=== PATIENT | female | born 1945 | race Caucasian/White ===

== ENCOUNTER 2016-11-03 13:55 | Emergency (ER) | payer MEDICARE, OTHER ==
[2016-11-03 14:22] VITALS: BP 153/75; PULSE 87; RESP 16; TEMP 98; O2SAT 100
--- NOTE | 2016-11-03 14:50 | ED PDOC ---
HPI: General Adult Time Seen by Provider: 11/03/16 14:23 Chief Complaint (Nursing): ENT Problem Chief Complaint (Provider): left ear pain History Per: Patient, Associate Director (Patient's son at bedside is translating in Citizen [place]) History/Exam Limitations: no limitations Onset/Duration Of Symptoms: Days (x3) Current Symptoms Are (Timing): Still Present Additional Complaint(s): Niru Truong is a 71 year old female with previous medical history of asthma, who presents to the emergency department with a complaint of left ear pain after cleaning her ears with a Q-tip 3 days ago. Denied any fever, chills, drainage, headaches, or dizziness. Patient reported feeling the cotton tip of Q-tip is stuck in ear. PMD: none provided Past Medical History Reviewed: Historical Data, Nursing Documentation, Vital Signs Vital Signs: Last Vital Signs Temp 98.0 F 11/03/16 14:19 Pulse 87 11/03/16 14:19 Resp 16 11/03/16 14:19 BP 153/75 H 11/03/16 14:19 Pulse Ox 100 11/03/16 15:23 - Medical History PMH: Asthma - Surgical History Surgical History: No Surg Hx - Family History Family History: States: No Known Family Hx - Living Arrangements Living Arrangements: With Family - Social History Current smoker - smoking cessation education provided: No Alcohol: None Drugs: Denies - Home Medications Home Medications: Ambulatory Orders Medication Instructions Recorded Docusate Sodium [Colace] 100 mg PO BID #20 sgl 12/18/14 Naproxen 375 mg PO Q8 PRN #15 tab 12/18/14 Ondansetron HCl [Zofran] 4 mg PO Q6 PRN #10 ml 12/18/14 oxyCODONE/Acetaminophen [Percocet 1 ea PO Q6 PRN #15 tab 12/18/14 5/325 mg Tab] Neomycin/Polymyxin/Hydrocort 4 drop TOP BID #1 bottle 11/03/16 [Cortisporin Otic Soln] - Allergies Allergies/Adverse Reactions: Allergies Allergy/AdvReac Type Severity Reaction Status Date / Time No Known Allergies Allergy Verified 11/03/16 14:19 Review of Systems ROS Statement: Except As Marked, All Systems Reviewed And Found Negative Constitutional: Negative for: Fever, Chills ENT: Positive for: Ear Pain (left - FB ). Negative for: Ear Discharge Respiratory: Negative for: Cough Gastrointestinal: Negative for: Vomiting Neurological: Negative for: Headache, Dizziness Physical Exam - Reviewed Nursing Documentation Reviewed: Yes Vital Signs Reviewed: Yes - Physical Exam Appears: Positive for: Well, Non-toxic, No Acute Distress Head Exam: Positive for: ATRAUMATIC, NORMAL INSPECTION, NORMOCEPHALIC ENT: Positive for: TM Is/Are (cotton swab in right auditory canal, no swelling, erythema or drainage, right ear wnl. ). Negative for: Normal ENT Inspection Neurologic/Psych: Positive for: Alert, Oriented - ECG O2 Sat by Pulse Oximetry: 100 (RA) Pulse Ox Interpretation: Normal Medical Decision Making Medical Decision Making: Initial Impression: Foreign body in left ear Initial Plan: * Removal of foreign body Time: 15:20 --Removed foreign body (cotton) from left ear with alligator forcep without any difficulty, TM intact s/p removal. Patient given prescription for Cortisporin otic drops and she was advised to avoid further use of Q-tips. Advised Tylenol for pain as needed. Patient was instructed to follow up with clinic or primary doctor in 2-3 days. Scribe Attestation: Documented by Deisy Olivarez, acting as a scribe for Carisa Fernandez PA-C. Provider Scribe Attestation: All medical record entries made by the Scribe were at my direction and personally dictated by me. I have reviewed the chart and agree that the record accurately reflects my personal performance of the history, physical exam, medical decision making, and the department course for this patient. I have also personally directed, reviewed, and agree with the discharge instructions and disposition. Procedures - Time-Out Type of Procedure: Foreign body removal Site of Procedure: left ear Correct Patient (with visual ID + MR# on ID Band): Yes Correct Procedure: Yes PA/Tech: Carisa Fernandez Disposition - Clinical Impression Clinical Impression: Ear foreign body - Patient ED Disposition Is Patient to be Admitted: No Counseled Patient/Family Regarding: Diagnosis, Need For Followup, Rx Given - Disposition Referrals: [facility], [facility] [Outside] Disposition: Routine/Home Disposition Time: 15:26 Condition: IMPROVED Additional Instructions: Tylenol for pain as needed. Apply rx drops as directed. Follow up in 2-3 days with clinic or primary care doctor. Avoid further use of q-tips. Prescriptions: Neomycin/Polymyxin/Hydrocort [Cortisporin Otic Soln] 4 drop TOP BID #1 bottle Instructions: Ear Foreign Body (ED) Forms: [facility] (Citizen [place]) Print Language: [place] Time Seen by Provider: 11/03/16 14:23 Chief Complaint (Nursing): ENT Problem
== END 2016-11-03 15:39 | disposition home or self-care (01) ==
LOC: H.ER 13:55
DX: T16.2XXA Foreign body in left ear, initial encounter (principal)